=== PATIENT | male | born 1940 | race Caucasian/White ===

== ENCOUNTER 2017-12-23 18:46 | Inpatient (IN) | payer MEDICARE, OTHER ==
--- NOTE | 2017-12-23 19:16 | RAD ---
Indication: Chest pain. Coronary disease with previous myocardial infarction and stenting. Comparison: July 02, 2006 Technique: Upright AP 1900 hours Report: Cutaneous pacemaker pads noted. Clear lungs and pleural spaces. Negative for pneumothorax. The heart, pulmonary vasculature, and mediastinal contours are unremarkable. Unremarkable osseous structures and soft tissue contours. IMPRESSION: Negative for pulmonary edema or other acute radiographic cardiopulmonary process.
[2017-12-23 19:20] LABS: ABS Basophils 0.1 10^3/ul (0-0.2); ABS Eosinophils 0.2 10^3/ul (0-0.6); ABS Lymphocytes 1.6 10^3/ul (1.0-4.8); ABS Monocytes 1.5 10^3/ul (0-0.8); ABS Neutrophils 13.7 10^3/ul (1.5-7.7); ABS Nucleated RBC 0 10^3/ul; Eosinophil % 0.9 % (0-6); Hematocrit 45 % (42-52); Hemoglobin 15.2 g/dl (14.0-18.0); Lymphocyte % 9.4 % (25-47); Mean Corpuscular HGB Conc 34 g/dl (31-36); Mean Corpuscular Hemoglobin 34 pg (27-31); Mean Corpuscular Volume 101 fL (80-94); Mean Platelet Volume 8.7 um3 (7.4-10.4); Nucleated Red Blood Cells % 0; Platelet Count 294 10^3/ul (150-450); Red Blood Count 4.46 10^6/ul (4.0-5.4); Red Cell Distribution Width 14 % (10.5-15)
[2017-12-23 19:21] LABS: EGFR Non-African American 56.7 (>60)
--- NOTE | 2017-12-23 21:18 | ED ---
Zain Mercado Natalie, scribed for Rogelio Miller MD on 12/23/17 at 1945 . HPI Chest Pain - HPI Summary HPI Summary: The patient is a 77 y/o M presenting to the ED BIBA c/o chest pain starting at 15:00 today. The pain is described as a cramping in the midsternal region. Per EMS, the pt was administered 324mg ASA and NTG x2. After the second NTG was administered right before entering the ED, the pt became bradycardic with HR of 33BPM, and then became unresponsive. The pt responded to a strong sternal rub with provider and staff at bedside. 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 He is currently A&Ox3 once he was moved to the stretcher. He is currently on the zoll monitor. He reports relief of CP that is rated 2/10 in severity. He is diaphoretic, has a cough, and feels weak. He denies nausea. The pt states he remembers being in the ambulance, but he doesn't remember coming into the ED, but he remembers "feeling bad all over." He has had a WI before. - History of Current Complaint Chief Complaint: EDChestPainROMI Time Seen by Provider: 12/23/17 18:51 Hx Obtained From: Patient Onset/Duration: Started Hours Ago, Still Present Time of Onset: 15:00 Timing: Constant Initial Severity: Severe Current Severity: Mild Pain Intensity: 2 Pain Scale Used: 0-10 Numeric Chest Pain Location: Mid Sternal Chest Pain Radiates: No Character: Cough, Non-Productive Aggravating Factor(s): Nothing Alleviating Factor(s): NTG 123 - two NTG administered by EMS, Other: - 324mg ASA Associated Signs and Symptoms: Positive: Chest Pain, Weakness. Negative: Nausea - Allergy/Home Medications Allergies/Adverse Reactions: Allergies Allergy/AdvReac Type Severity Reaction Status Date / Time No Known Allergies Allergy Verified 12/23/17 18:53 Home Medications: Home Medications Aspirin EC TAB* [Ecotrin EC Low Dose 81 MG*] 81 mg PO DAILY 12/23/17 [History Confirmed 12/23/17] PMH/Surg Hx/FS Hx/Imm Hx Endocrine/Hematology History: Denies: Hx Diabetes Cardiovascular History: Reports: Hx Myocardial Infarction Infectious Disease History: No Infectious Disease History: Denies: Traveled Outside the [place] in Last 30 Days - Family History Known Family History: Positive: Cardiac Disease - Social History Alcohol Use: Occasionally Substance Use Type: Reports: None Smoking Status (MU): Former Smoker Review of Systems Positive: Skin Diaphoresis Positive: Chest Pain Positive: Cough Positive: Weakness All Other Systems Reviewed And Are Negative: Yes Physical Exam - Summary Physical Exam Summary: Appearance: The patient is well-nourished in no acute distress and in no acute pain. Skin: The skin is warm and diaphoretic and skin color reflects adequate perfusion. HEENT: The head is normocephalic and atraumatic. The pupils are equal and reactive. The conjunctivae are clear and without drainage. Nares are patent and without drainage. Mouth reveals moist mucous membranes and the throat is without erythema and exudate. The external ears are intact. The ear canals are patent and without drainage. The tympanic membranes are intact. Neck: The neck is supple with full range of motion and non-tender. There are no carotid bruits. There is no neck vein distension. Respiratory: Chest is non-tender. Lungs are clear to auscultation and breath sounds are symmetrical and equal. He has a paroxysmic cough. Cardiovascular: Normal heart ones. Heart is regular rate and rhythm. There is no murmur or rub auscultated. There is no peripheral edema and pulses are symmetrical and equal. Abdomen: The abdomen is soft and non-tender. There are normal bowel sounds heard in all four quadrants and there is no organomegaly palpated. Musculoskeletal: There is no back tenderness noted. Extremities are non-tender with full range of motion. There is good capillary refill. There is no peripheral edema or calf tenderness elicited. Neurological: Patient is alert and oriented to person, place and time. The patient has symmetrical motor strength in all four extremities. Cranial nerves are grossly intact. Deep tendon reflexes are symmetrical and equal in all four extremities. Psychiatric: The patient has an appropriate affect and does not exhibit any anxiety or depression. Triage Information Reviewed: Yes Vital Signs On Initial Exam: Initial Vitals Pulse Resp BP Pulse Ox 73 20 102/55 99 12/23/17 18:48 12/23/17 18:48 12/23/17 18:48 12/23/17 18:48 Vital Signs Reviewed: Yes Diagnostics - Vital Signs Vital Signs Temp Pulse Resp BP Pulse Ox 12/23/17 19:00 77 22 94 12/23/17 18:58 93 12/23/17 18:55 99.2 F 70 15 102/55 93 12/23/17 18:53 96 F 68 20 102/55 94 12/23/17 18:48 73 20 102/55 99 - Laboratory Lab Results: Lab Results 12/23/17 12/23/17 12/23/17 Range/Units 18:55 18:55 18:55 WBC 17.0 H (3.5-10.8) 10^3/ul RBC 4.46 (4.0-5.4) 10^6/ul Hgb 15.2 (14.0-18.0) g/dl Hct 45 (42-52) % MCV 101 H (80-94) fL MCH 34 H (27-31) pg MCHC 34 (31-36) g/dl RDW 14 (10.5-15) % Plt Count 294 (150-450) 10^3/ul MPV 8.7 (7.4-10.4) um3 Neut % (Auto) 80.7 (38-83) % Lymph % (Auto) 9.4 L (25-47) % [place] % (Auto) 8.7 H (0-7) % Eos % (Auto) 0.9 (0-6) % Baso % (Auto) 0.3 (0-2) % Absolute Neuts (auto) 13.7 H (1.5-7.7) 10^3/ul Absolute Lymphs (auto) 1.6 (1.0-4.8) 10^3/ul Absolute Monos (auto) 1.5 H (0-0.8) 10^3/ul Absolute Eos (auto) 0.2 (0-0.6) 10^3/ul Absolute Basos (auto) 0.1 (0-0.2) 10^3/ul Absolute Nucleated RBC 0 10^3/ul Nucleated RBC % 0 D-Dimer, Quantitative 224 (Less Than 230) ng/mL Lactic Acid 1.2 (0.5-2.0) mmol/L Result Diagrams: 12/23/17 18:55 12/23/17 18:55 Lab Statement: Any lab studies that have been ordered have been reviewed, and results considered in the medical decision making process. - Radiology CXR Xray Interpretation: No Acute Changes - Negative for pulmonary edema or other acute radiographic cardiopulmonary process. ED physician has reviewed this report. Radiology Interpretation Completed By: Radiologist - EKG 18:54 Cardiac Rate: NL EKG Rhythm: Sinus Rhythm - 66 BPM EKG Interpretation: RBBB. No ST elevation. Re-Evaluation - Re-Evaluation First Eval Re-Evaluation Time: 20:00 Change: Unchanged Comment: I spoke with the patient about being admitted to [facility]. Chest Pain Course/Dx - Course Course Of Treatment: suffered epigastric and chest pain from approximately 1500 hrs. on today. He apparently became bradycardic in the ambulance prior to arrival and then on transport into the emergency department became unresponsive. It is unclear what his vitals exactly were during that period, however his heart rate was 33. He regained consciousness as he was being transported onto our gurney in room 14 subsequent to a sternal rub. After a short period of disorientation, he became alert and oriented and reported that his chest pain was very much reduced and possibly gone. His initial EKG showed a right bundle branch block. An EKG faxed in prior to his arrival the EMS crew showed a right bundle branch block and occasional PVCs. His initial troponin was 0. I've asked the hospitalist to evaluate him for his very dramatic presentation of chest pain. - Diagnoses Provider Diagnoses: Chest pain - Provider Notifications Discussed Care Of Patient With: Dilia Rios Time Discussed With Above Provider: 19:55 - Dr. Rios accepts the patient for admittance to [facility]. - Critical Care Time Critical Care Time: 30-74 min Discharge - Sign-Out/Discharge Documenting (check all that apply): Discharge/Admit/Transfer - Discharge Plan Condition: Stable Disposition: ADMITTED TO [facility] Referrals: Dennise Mccarthy MD [Primary Care Provider] - - Billing Disposition and Condition Condition: STABLE Disposition: HOSP-[facility] The documentation as recorded by the Zain cruz Natalie accurately reflects the service I personally performed and the decisions made by me, Rogelio Miller MD.
[2017-12-23] MEDS ORDERED: Acetaminophen TAB* 325 MG PO PRN (22:24)
[2017-12-23] MEDS ORDERED: Al Hydrox/Mg Hydrox/Simet LIQ* 30 ML UDC PO PRN (22:24)
[2017-12-23] MEDS ORDERED: Ondansetron INJ* 2 MG/ML VIAL IV PRN (22:24)
[2017-12-24] MEDS: NS 0.9% 1000 ML* 1,000 ML IV SCH ×2 (00:30→18:10)
[2017-12-24 00:32] LABS: Urine Appearance Cloudy; Urine Blood Negative (Negative); Urine Color Yellow; Urine Ketones Trace (Negative); Urine Protein Negative (Negative); Urine Specific Gravity 1.025 (1.010-1.030); Urine Urobilinogen Negative (Negative)
--- NOTE | 2017-12-24 00:32 | HP ---
CC: Dr. Dennise Mccarthy * HISTORY AND PHYSICAL: DATE OF ADMISSION: 12/23/17 PROVIDER: Dilia Rios NP PRIMARY CARE PROVIDER: Dr. Dennise Mccarthy. ATTENDING PHYSICIAN WHILE IN THE HOSPITAL: Dr. Gary Rausch* (dictated by Dilia Rios NP) CHIEF COMPLAINT: 1. Chest pain. 2. Nausea and vomiting. HISTORY OF PRESENT ILLNESS: Mr. 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 this evening developed chest pain with chills. The patient states that he felt well this morning. He was working outside. He had no chest pain. He had gone and was photographing some kincaid and had no chest pain at all. He was feeling his normal state of health and that between 2:30 and 3 p.m. today, he developed some stomach upset, felt like he needed to have a BM and then he felt nausea. He went to the bathroom several times and then did vomited x1. After he vomited, he became chilled. He states then about 4 p.m., he developed some chest pain and some chills. He was belching. He reports that these symptoms were similar to 12 years ago when he had his [place]. Due to this concern and his history of coronary artery disease with stent placement x2 in his LAD and circumflex 12 years ago, we were asked to see and evaluate him for admission. While in the emergency room, the patient had a routine lab work drawn. His initial troponin was negative. It was noted that when the patient was being transferred from EMS stretcher to the hospital stretcher, he did have a syncopal episode. The patient states that he felt dizzy after receiving his second nitro sublingual and then does not remember what happened after that. The patient recently returned from the [facility] approximately 3 to 4 weeks at which time that was a 30-hour flight home. PAST MEDICAL HISTORY: Significant for: 1. Hypertension. 2. Hyperlipidemia. 3. [place]. 4. Lyme disease. 5. Guillain-Ruskin. PAST SURGICAL HISTORY: 1. Stents in his LAD and circumflex 12 years ago. 2. Appendectomy. 3. Tonsillectomy. HOME MEDICATIONS: Include: 1. Metoprolol 50 mg p.o. daily. 2. Aspirin 81 mg p.o. daily. 3. Vitamin B12. 4. Lopid 600 mg p.o. daily. ALLERGIES: No known drug allergies. FAMILY HISTORY: Father with a history of an [place]. No diabetes was reported. No cancer reported. SOCIAL HISTORY: He denies having tobacco use. Alcohol use: He does report daily consumption of approximately 1 to 2 glasses of wine. Denies any illicit drug use. He is . Surrogate decision maker in the event he is unable to make his own decision is his , Genevieve Holman and her phone number is [phone]. He is a full code. REVIEW OF SYSTEMS: There was no documented fever. There is no significant weight change. He does report some chest pain that has resolved since his presentation to the emergency room. No edema. He does report a chronic cough with clear sputum. Denies any hemoptysis. Denies any shortness of breath. He does report some nausea and vomiting today. He does report 1 episode of diarrhea. He also reported some abdominal pain. He denies any hematuria, denies any dysuria. Denies any focal weakness or sensory loss. Denies any visual changes. Denies any dizziness. Denies any dysphagia. Denies any arthralgias or myalgias. Denies any rashes or lesions. Denies any psychosis or anxiety. PHYSICAL EXAMINATION GENERAL: At this time, Ms. Holman is a 77-year-old gentleman. He appears well , sitting on the stretcher in the emergency room. He does not appear to be in any acute distress. VITAL SIGNS: Blood pressure is 109/63, heart rate is 64, sinus rhythm on the monitor, respirations are 20, O2 saturation was 95%. HEENT: Head is atraumatic, normocephalic. Eyes: EOMs are intact. Sclerae anicteric and not pale. Oral mucosa appeared to be moist. NECK: Supple. LUNGS: Clear to auscultation bilaterally. No wheezes, rales, or rhonchi. CARDIAC: S1, S2. Regular rate and rhythm. There are no murmurs, rubs, or gallops. ABDOMEN: Soft and nontender. Bowel sounds are present x4. EXTREMITIES: Pulses are +2 throughout. He is able to move all 4 extremities with 5/5 strength. NEUROLOGIC: He is alert and oriented x4. His speech is clear. There are no focal deficits. SKIN: Intact. DIAGNOSTIC STUDIES AND LABORATORY DATA: WBCs were 17.0, RBCs 4.46, hemoglobin was 15.2, hematocrit was 45, MCV 101, MCH was 34, platelet count was 294. D- dimer was 224. Sodium 140, potassium 3.8, chloride was 107, carbon dioxide was 24, anion gap was 9, BUN was 23, creatinine 1.24, glucose was 125. Lactic acid was 1.2. Troponin was 0.00 and 0.03. He had a chest x-ray. Radiologist's impression: Negative for pulmonary edema or other radiographic cardiopulmonary processes. He had an electrocardiogram done, which showed sinus rhythm at a rate of 70 with a right bundle branch block. ASSESSMENT AND PLAN: Mr. Holman is a 77-year-old male who presented to the emergency room today with complaints of abdominal pain that progressed to chest pain. He did receive 2 nitro by EMS and subsequently had a syncopal episode when being transferred from the stretcher to the emergency room stretcher. He was able to be aroused with sternal rub. The patient currently denies any chest pain. Denies any shortness of breath at this time. We were asked to see and evaluate him for admission. He will be admitted under observation for: 1. Chest pain. We will rule out acute coronary syndrome. His NORAH score is 3 , which gives him a 13% risk at 14 days all cause mortality, new or recurrent myocardial infarction or severe recurrent ischemia requiring urgent revascularization. He did have a D-dimmer drawn that was negative. Given his history, he recently returned from [facility] which was approximately 30-hour flight. Should he develop any further symptoms of shortness of breath or different changes in chest pain, we may need to consider doing a CTA of the chest for further evaluation of pulmonary embolism. I will continue to trend his troponins. Currently, they are negative at 0.00 and 0.03. We will repeat an EKG in the morning. The patient does carry a history of coronary artery disease with 2 stents placements in the LAD and the circumflex approximately 12 years ago. I will order nuclear stress. 2. Hypertension. We will continue him on metoprolol. 3. Hyperlipidemia. He will continue his Lopid 600 mg p.o. daily. 7. DVT prophylaxis. I will place him on heparin subcu 5000 units q.8 hours. 8. FEN. He will be placed on a heart healthy, decaf okay diet after his stress test. 9. Code status. He is a full code. TIME SPENT: Time spent on this admission was approximately 60 minutes, greater than half of that time was spent [id number] with the patient obtaining my history and physical, the other half of the time was spent going over my plan of care and implementing my plan of care. I did discuss this with my attending, Dr. Gary Rausch, and he is in agreement with my plan. DILIA RIOS, JEANNE [id number]/[facility] #: [id number] MTDBrenda
--- NOTE | 2017-12-24 02:07 | PN ---
Hospitalist Progress Note Date of Service: 12/24/17 Called by RN due to mildly elevated troponin on pt admitted for CP. Pt likely have ACS, but pt currently sleeping, comfortable, with stable VS per RN. Will D /C DVT prophylaxis with SQ Heparin and will place pt on 1mg/kg SQ Lovenox q12H until pt re-evaluated in AM by team. EKG re-ordered
[2017-12-24] MEDS: Enoxaparin(*) 80 MG/0.8 ML SYR SUBCUT SCH ×2 (02:11→17:40)
[2017-12-24 06:00] LABS: ABS Basophils 0 10^3/ul (0-0.2); ABS Eosinophils 0.1 10^3/ul (0-0.6); ABS Lymphocytes 1.9 10^3/ul (1.0-4.8); ABS Monocytes 1.2 10^3/ul (0-0.8); ABS Neutrophils 6.3 10^3/ul (1.5-7.7); ABS Nucleated RBC 0 10^3/ul; Eosinophil % 0.9 % (0-6); Hematocrit 40 % (42-52); Hemoglobin 13.8 g/dl (14.0-18.0); Lymphocyte % 20.3 % (25-47); Mean Corpuscular HGB Conc 35 g/dl (31-36); Mean Corpuscular Hemoglobin 35 pg (27-31); Mean Corpuscular Volume 100 fL (80-94); Mean Platelet Volume 8.8 um3 (7.4-10.4); Nucleated Red Blood Cells % 0.1; Platelet Count 245 10^3/ul (150-450); Red Blood Count 4.01 10^6/ul (4.0-5.4); Red Cell Distribution Width 14 % (10.5-15); White Blood Count 9.5 10^3/ul (3.5-10.8)
[2017-12-24] MEDS ORDERED: Heparin VIAL(*) 5000 UNITS/ML VIAL (FIVE THOUSAND) SUBCUT SCH (06:00)
[2017-12-24 06:20] LABS: EGFR Non-African American 63.7 (>60)
[2017-12-24] MEDS: Gemfibrozil TAB* 600 MG PO SCH (08:28)
[2017-12-24] MEDS: Aspirin EC TAB* 81 MG TAB.EC PO SCH (08:28)
[2017-12-24] MEDS ORDERED: Diazepam TAB(*) 5 MG PO ONE (09:09)
[2017-12-24] MEDS ORDERED: Aspirin 81 mg CHEW TAB* 81 MG TAB.CHEW PO ONE (09:09)
[2017-12-24] MEDS ORDERED: diPHENhydraMINE PO* 25 MG PO ONE (09:09)
[2017-12-24] MEDS: Metoprolol Succinate XL TAB* 50 MG PO SCH (09:28)
--- NOTE | 2017-12-24 11:17 | ECHO ---
Patient: CARLINE BARR [facility] Rec#: [id number] : 1940 Date: 12/24/2017 Age: 77y Height: 170.18 cm / 67.0 in Weight: 72.12 kg / 159.0 lbs Sex: M BSA: 1.83 Admit Date#: 12/24/2017 Type: Inpatient Referring: Josselin Angulo MD Reading: Dar Barrientos MD Planer Feeder: Abeba PalmaKELVIN CC: Dennise Mccarthy MD Transthoracic Echocardiogram Indication: Chest Pain, elevated troponin levels BP: 118/60 HR: 53 Rhythm: Bradycardia Findings History: HTN, HLD, IA with PCI 12 years ago, Lyme disease 2017. Technical Comments: The study quality is fair. Completed at 1000. Left Ventricle: The left ventricular chamber size is normal. Mild concentric left ventricular hypertrophy is observed. Left ventricular systolic function is at the lower limits of normal. The estimated ejection fraction is 50-55%. There is a left ventricular septal wall motion abnormality observed, possibly due to the presence of a right bundle branch block. Abnormal left ventricular diastolic function is observed. There is an E to A reversal in the mitral valve flow pattern suggestive of diastolic dysfunction. Left Atrium: The left atrial chamber size is normal. Right Ventricle: Moderator Band present. The right ventricular cavity size is normal. The right ventricular global systolic function is normal. Right Atrium: The right atrial cavity size is normal. Aortic Valve: The aortic valve is trileaflet. There is evidence of aortic sclerosis without stenosis. There is trace to mild aortic regurgitation. There is no evidence of aortic stenosis. Mitral Valve: The mitral valve leaflets are mildly thickened. There is trace to mild mitral regurgitation. There is no evidence of mitral stenosis. Tricuspid Valve: The tricuspid valve leaflets are normal. There is trace to mild tricuspid regurgitation. The right ventricular systolic pressure is estimated at 26 mmHg. No pulmonary hypertension is noted. There is no tricuspid stenosis. Pulmonic Valve: The pulmonic valve appears normal. There is a trace pulmonic regurgitation. There is no pulmonic stenosis. Pericardium: There is no significant pericardial effusion. Aorta: There is mild dilatation of the ascending aorta. There is no dilatation of the aortic arch. There is mild dilatation of the aortic root. Pulmonary Artery: The main pulmonary artery appears normal. Venous: The inferior vena cava appears normal in size. There is a greater than 50% respiratory change in the inferior vena cava dimension. Conclusions Left ventricular systolic function is at the lower limits of normal. The estimated ejection fraction is 50-55%. There is a left ventricular septal wall motion abnormality observed, possibly due to the presence of a right bundle branch block. The right ventricular global systolic function is normal. There is evidence of aortic sclerosis without stenosis. There is trace to mild mitral regurgitation. There is trace to mild tricuspid regurgitation. The right ventricular systolic pressure is estimated at 26 mmHg. There is no significant pericardial effusion. Measurements Name Value Normal Range RVIDd (AP) 2D 3 cm (0.9 - 2.6) RVDdMajor (2D) 3.6 cm (2.2 - 4.4) RAd ISD 4CH 4.7 cm (3.4 - 4.9) RA (A4C)W 4 cm (2.9 - 4.6) IVSd (2D) 1.3 cm (0.6 - 1) LVPWd (2D) 1.2 cm (0.6 - 1) LVIDd (2D) 4.3 cm (3.6 - 5.4) LVIDs (2D) 3.6 cm - LV FS (2D) 17 % (25 - 45) Aortic Annulus 2 cm (1.4 - 2.6) Ao root diameter (2D) 3.7 cm (2.1 - 3.5) Ascending Ao 3.7 cm (2.1 - 3.4) Aortic arch 2.7 cm (1.8 - 3.4) LA dimension (AP) 2D 3.4 cm (2.3 - 3.8) LAd ISD 4CH 5.1 cm (2.9 - 5.3) LA ISD 4CH W 4.2 cm (2.5 - 4.5) Name Value Normal Range LA ESV SP 4CH (A/L) 39 ml - LA ESV SP 2CH (A/L) 43 ml - LA ESV BP (A/L) 45 ml - LA ESV BP (A/L) index 24 ml/m2 - LA ESV SP 4CH (MOD) 35 ml - LA ESV SP 2CH (MOD) 39 ml - Name Value Normal Range MV E-wave Vmax 0.61 m/sec - MV deceleration time 245.3 msec - MV A-wave Vmax 0.75 m/sec - MV E:A ratio 0.8 ratio - LV septal e' Vmax 0.07 m/sec - LV lateral e' Vmax 0.08 m/sec - LV E:e' septal ratio 8.71 ratio - LV E:e' lateral ratio 7.63 ratio - Name Value Normal Range AV Vmax 1.2 m/sec - AV VTI 31.11 cm - AV peak gradient 5.64 mmHg - AV mean gradient 2.87 mmHg - LVOT Vmax 1.1 m/sec - LVOT VTI 26.07 cm - LVOT peak gradient 5.12 mmHg - LVOT mean gradient 2.74 mmHg - UMBERTO Vmax 0.71 m/sec - Name Value Normal Range TR Vmax 2.4 m/sec - TR peak gradient 23 mmHg - RAP 3 mmHg - RVSP 26 mmHg - IVC diameter 2 cm - Name Value Normal Range PV Vmax 0.84 m/sec - PV peak gradient 2.85 mmHg -
--- NOTE | 2017-12-24 12:00 | PN ---
Subjective Date of Service: 12/24/17 Interval History: no more CP since admission, but troponins continue to raise. Pt feels comfortable, no complaints Objective Active Medications: Acetaminophen (Tylenol Tab*) 650 mg PO Q4H PRN PRN Reason: FEVER/PAIN Al Hydrox/Mg Hydrox/Simethicone (Maalox Plus*) 30 ml PO Q6H PRN PRN Reason: INDIGESTION Aspirin (Aspirin Ec Tab*) 81 mg PO DAILY [facility] Last Admin: 12/24/17 08:28 Dose: 81 mg Enoxaparin Sodium (Lovenox(*)) 70 mg SUBCUT Q12H [facility] Last Admin: 12/24/17 02:11 Dose: 70 mg Gemfibrozil (Lopid Tab*) 600 mg PO DAILY [facility] Last Admin: 12/24/17 08:28 Dose: 600 mg Sodium Chloride (Ns 0.9% 1000 Ml*) 1,000 mls @ 75 mls/hr IV PER RATE [facility] Last Admin: 12/24/17 00:30 Dose: 75 mls/hr Metoprolol Succinate (Toprol Xl Tab*) 50 mg PO DAILY [facility] Last Admin: 12/24/17 09:28 Dose: Not Given Ondansetron HCl (Zofran Inj*) 4 mg IV Q4H PRN PRN Reason: NAUSEA/VOMITING Vital Signs - 8 hr 12/24/17 12/24/17 12/24/17 04:38 07:22 07:44 Temperature 98.1 F Pulse Rate 60 62 Respiratory 16 Rate Blood Pressure 104/59 118/60 (mmHg) O2 Sat by Pulse 97 Oximetry Oxygen Devices in Use Now: None Appearance: 77 yo M in nAD, aAOx3 Eyes: No Scleral Icterus, PERRLA Ears/Nose/Mouth/Throat: NL Teeth, Lips, Gums, Mucous Membranes Moist Neck: NL Appearance and Movements; NL JVP, Trachea Midline Respiratory: Symmetrical Chest Expansion and Respiratory Effort, Clear to Auscultation Cardiovascular: NL Sounds; No Murmurs; No JVD Abdominal: NL Sounds; No Tenderness; No Distention, No Hepatosplenomegaly Lymphatic: No Cervical Adenopathy Extremities: No Edema, No Clubbing, Cyanosis Skin: No Rash or Ulcers, No Nodules or Sclerosis Neurological: Alert and Oriented x 3, NL Muscle Strength and Tone Result Diagrams: 12/24/17 05:29 12/24/17 05:29 Additional Lab and Data: Lab Results 12/23/17 12/23/17 12/23/17 Range/Units 18:55 18:55 18:55 WBC 17.0 H (3.5-10.8) 10^3/ul RBC 4.46 (4.0-5.4) 10^6/ul Hgb 15.2 (14.0-18.0) g/dl Hct 45 (42-52) % MCV 101 H (80-94) fL MCH 34 H (27-31) pg MCHC 34 (31-36) g/dl RDW 14 (10.5-15) % Plt Count 294 (150-450) 10^3/ul MPV 8.7 (7.4-10.4) um3 Neut % (Auto) 80.7 (38-83) % Lymph % (Auto) 9.4 L (25-47) % [place] % (Auto) 8.7 H (0-7) % Eos % (Auto) 0.9 (0-6) % Baso % (Auto) 0.3 (0-2) % Absolute Neuts (auto) 13.7 H (1.5-7.7) 10^3/ul Absolute Lymphs (auto) 1.6 (1.0-4.8) 10^3/ul Absolute Monos (auto) 1.5 H (0-0.8) 10^3/ul Absolute Eos (auto) 0.2 (0-0.6) 10^3/ul Absolute Basos (auto) 0.1 (0-0.2) 10^3/ul Absolute Nucleated RBC 0 10^3/ul Nucleated RBC % 0 D-Dimer, Quantitative 224 (Less Than 230) ng/mL Lactic Acid 1.2 (0.5-2.0) mmol/L Assess/Plan/Problems-Billing Assessment: 77 yo M with h/o CAD(2 stents in past) presents with CP - Patient Problems (1) Unstable angina Comment: for cath today cont lovenox, ASA, lopressor Dr. Barrientos will see (2) Dyslipidemia Comment: on lopid, LDL 128, will d/w pt statin tx (3) DVT prophylaxis Comment: lovenox Status and Disposition: inpatient
[2017-12-24] MEDS ORDERED: fentaNYL* 50 MCG/ML 2 ML VIAL (100 MCG VIAL) ONE (13:24)
[2017-12-24] MEDS ORDERED: Heparin(*) 1000 UNIT/ML 10 ML VIAL CATH LAB IV ONE (13:25)
[2017-12-24] MEDS ORDERED: nitroGLYCERIN DRIP* 25,000 MCG/250 ML BTL ONE (13:25)
[2017-12-24] MEDS ORDERED: Heparin 2 UNITS/ML IVPREMIX* 2,000 ML IV ONE (13:25)
[2017-12-24] MEDS ORDERED: Lidocaine 1% INJ* 10 MG/ML 30 ML SDV ONE (13:25)
[2017-12-24] MEDS ORDERED: Iohexol 350 (CONTRAST) 200 ML MDV IV ONE ×2 (13:26→13:27)
[2017-12-24] MEDS ORDERED: VERAPAMIL 2.5 MG/ML 2 ML VIAL ** 5 mg/2 ml ONE (13:27)
[2017-12-24] MEDS ORDERED: Midazolam* 1 MG/ML 10 ML VIAL (10 MG) ONE (13:47)
[2017-12-24] MEDS ORDERED: Nitroglycerin TAB 0.4 MG* 0.4 MG TAB SL PRN (14:46)
[2017-12-24] MEDS ORDERED: Clopidogrel TAB* 300 MG PO ONE (14:47)
--- NOTE | 2017-12-24 14:52 | CONS ---
CC: Dr. Mccarthy * CARDIOLOGY CONSULTATION: DATE OF CONSULT: 12/24/17 INDICATION FOR CONSULTATION: Chest pain, acute coronary syndrome, coronary artery disease. HISTORY OF PRESENT ILLNESS: The patient is a 77-year-old gentleman with a history of coronary artery disease, history of stenting to his LAD and left circumflex artery in 2005. He was admitted to the hospital with chest pain. The patient states that he was out working in his yard most of the afternoon. He suddenly felt severe abdominal pain as though he would urgently have a bowel movement. He went into the house, had his bowel movement, still did not feel quite comfortable, was lying on his couch, had to have a second bowel movement and then later on started having chest pain. It was the center of his chest, it did radiate up into his shoulder. He did not have any diaphoresis. He did feel slightly nauseous with it. He told his who decided to bring him to the emergency room. On arrival, his EKG showed normal sinus rhythm with a right bundle-branch block. This is unchanged from previous EKGs. He had no clear evidence of ST segment elevation. His initial troponin level was 0. Subsequently, his troponin levels went up to 0.24 and then at a peak of 1.43. This morning, the patient is pain free. PAST MEDICAL HISTORY: Consistent with coronary artery disease, hypercholesterolemia, bradycardia. PAST SURGICAL HISTORY: None. OUTPATIENT MEDICATIONS: 1. Metoprolol ER 25 mg a day. 2. Gemfibrozil 600 mg b.i.d. 2. Aspirin 81 mg a day. ALLERGIES: He has been intolerant of multiple STATINS in the past. SOCIAL HISTORY: He is . He is currently retired. He is a previous smoker, he quit 40 years ago. He does get regular exercise. He has occasional alcohol. He drinks 2 cups of coffee a day. REVIEW OF SYSTEMS: Negative for fevers or chills. Negative for changes of bowel or bladder habits. Negative for changes in weight. PHYSICAL EXAMINATION: Height is 5 feet 7 inches, weight is 160 pounds. Temperature 98.1, heart rate is 62, blood pressure 118/60, respiratory rate is 16, oxygen saturation 97% on room air. Sclerae anicteric. Oropharynx is pink without erythema. Carotids are 2+ without bruits. JVD is normal. Thyroid is normal. Cardiac Exam: S1, S2 without any murmurs, rubs or gallops. Lungs are clear to auscultation bilaterally. There is no dullness to percussion. Abdomen is soft, nontender, nondistended with normoactive bowel sounds. Extremities show no edema. He has 2+ pulses throughout. The patient is awake, alert, and oriented. He moves all 4 extremities equally. DIAGNOSTIC STUDIES/LAB DATA: The patient had an echocardiogram today, which demonstrated normal LV size and systolic function. No local wall motion abnormalities. No valvular abnormalities. The patient had a stress echocardiogram in 2011, at which time he exercised for 10 minutes. He had no chest pain, no EKG changes and normal augmentation of his left ventricle. Laboratory Studies: Chemistries within normal limits. BUN 23, creatinine 1.1, AST and ALT are normal, total cholesterol 195. LDL 128, HDL of 51. Troponin levels are as described above. CBC within normal limits. IMPRESSION: This is a 77-year-old gentleman with a history of known coronary artery disease who was admitted to the hospital with unstable angina. He clearly had rest angina at home. His initial troponin level was normal, but has since risen to 1.4. Currently, the patient is pain free. It is my recommendation the patient undergo cardiac catheterization. At this point, I do not think any medication changes are necessary until results of the cardiac catheterization. [id number]/[facility] #: [id number] MTDD
[2017-12-25] MEDS: Enoxaparin(*) 80 MG/0.8 ML SYR SUBCUT SCH (03:18)
[2017-12-25 06:10] LABS: ABS Basophils 0 10^3/ul (0-0.2); ABS Eosinophils 0.3 10^3/ul (0-0.6); ABS Lymphocytes 2.4 10^3/ul (1.0-4.8); ABS Monocytes 0.8 10^3/ul (0-0.8); ABS Neutrophils 3.4 10^3/ul (1.5-7.7); ABS Nucleated RBC 0 10^3/ul; Eosinophil % 4.1 % (0-6); Hematocrit 41 % (42-52); Lymphocyte % 34.3 % (25-47); Mean Corpuscular HGB Conc 35 g/dl (31-36); Mean Corpuscular Hemoglobin 34 pg (27-31); Mean Corpuscular Volume 100 fL (80-94); Mean Platelet Volume 8.4 um3 (7.4-10.4); Nucleated Red Blood Cells % 0.2; Platelet Count 251 10^3/ul (150-450); Red Blood Count 4.07 10^6/ul (4.0-5.4); Red Cell Distribution Width 13 % (10.5-15); White Blood Count 6.9 10^3/ul (3.5-10.8)
[2017-12-25 06:23] LABS: EGFR Non-African American 67.9 (>60)
[2017-12-25 08:38] VITALS: BP 132/72
[2017-12-25] MEDS: Metoprolol Succinate XL TAB* 50 MG PO SCH (08:39)
[2017-12-25] MEDS: Gemfibrozil TAB* 600 MG PO SCH (08:39)
[2017-12-25] MEDS: Aspirin EC TAB* 81 MG TAB.EC PO SCH (08:39)
[2017-12-25] MEDS ORDERED: Clopidogrel TAB* 75 MG PO SCH (09:00)
--- NOTE | 2017-12-25 14:04 | CATH ---
CC: Dr. Mccarthy; Dr. Wallace * CARDIAC CATHETERIZATION NOTE: DATE OF PROCEDURE: 12/24/17 - ROOM #[id number] PROCEDURE: Cardiac catheterization including coronary angiography. INDICATION: Coronary artery disease, acute coronary syndrome, chest pain. The patient is a 77-year-old gentleman with a history of coronary artery disease , history of stents to his LAD and left circumflex artery in 2005, who came to the hospital because of chest pain. His initial EKG showed no ischemic EKG changes. His troponin peaked at 1.4. Cardiac catheterization was recommended. DESCRIPTION OF PROCEDURE: The patient was brought to the cardiac catheterization lab in a fasting state. Informed consent had been obtained prior to the procedure. All labs had been reviewed. The patient was placed supine on the procedure table. His right radial area was cleaned and draped in the usual fashion. 1% lidocaine was used for local anesthesia. The right radial artery was entered by a Seldinger technique and a guidewire was placed. A 6-Turkmen hydrophilic sheath was placed. The patient underwent coronary angiography using a 5-Turkmen TIG catheter and a 5- Turkmen FL4 catheter. At the end of the procedure, all sheaths and catheters were removed. The patient tolerated the procedure well with no complications. A total of 30 cc of Omnipaque dye was used. A total of 4.1 minutes of fluoro time was used. FINDINGS: Left main: The left main was normal in size. It bifurcated into the LAD and circumflex. There was no evidence of stenosis. Left anterior descending artery: The LAD was normal in size. A proximal stent was open and patent. There was mild disease at the mid LAD. The distal LAD had no disease. Two diagonal vessels had no disease. Left circumflex artery: The circumflex artery was normal in size. It gave off 3 obtuse marginal branches. The left circumflex itself had no disease. The stent to the mid left circumflex was open and patent. The OM2 vessel had a proximal eccentric 50% stenosis. The remainder of the vessels were without disease. Right coronary artery: The RCA was a large dominant vessel. It gave off the PDA. There was mild disease in the proximal right coronary artery. The remainder of the vessel was without disease. IMPRESSION: 1. Stents to the LAD and left circumflex artery are open and patent. 2. 50% stenosis to the OM2 vessel off left circumflex artery. 3. Mild disease to the proximal right and mid LAD vessels. RECOMMENDATIONS: The patient will be continued on maximum medical therapy. [id number]/[facility] #: [id number] MTDD
[2017-12-25] MEDS ORDERED: Atorvastatin* 40 MG TAB PO SCH (17:00)
[2017-12-25] MEDS ORDERED: Atorvastatin* 80 MG TAB PO SCH (17:00)
--- NOTE | 2017-12-25 22:18 | DS ---
CC: Dennise Mccarthy MD; Dr. Barrientos * DISCHARGE SUMMARY: DATE OF ADMISSION: 12/23/17 DATE OF DISCHARGE: 12/25/17 PRIMARY CARE PROVIDER: Dennise Mccarthy MD DISCHARGE DIAGNOSIS: [id number] myocardial infarction. SECONDARY DIAGNOSES: 1. History of hypertension. 2. Dyslipidemia. 3. History of myocardial infarction. 4. History of Lyme disease. 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 MEDICATIONS AT DISCHARGE: Include: 1. Metoprolol-XL 50 mg daily. 2. Aspirin 81 mg daily. 3. Vitamin B12 daily dietary supplement. 4. Lopid 600 mg daily. New medication: 1. Plavix 75 mg daily. LABORATORY DATA AND STUDIES PERFORMED DURING THE HOSPITAL STAY: Include: On , white blood cell count of 6.9, hemoglobin of 14.0, hematocrit of 41, MCV of 100, platelet of 251. Sodium was 139, potassium 3.9, chloride 108, carbon dioxide 23, BUN 21, creatinine 1.02. Liver function tests were unremarkable at admission. The patient's troponin peaked at 1.59 on 12/24/17. The patient's lipid profile showed triglycerides of 78, cholesterol total of 195 , LDL of 128, HDL of 51 that was obtained on 12/24/17. CONSULTATIONS DURING THE HOSPITAL STAY: Included Dr. Barrientos from Cardiology. PROCEDURES PERFORMED: Include cardiac catheterization performed by Dr. Barrientos on 12/24/17. The official dictated report is still pending at the time of this dictation. From the written abbreviated report, the patient had both stents at the LAD opened. The S1 branch of LAD with 99% stenosis, but it was significantly small caliber vessel not amenable for intervention, OM2 branch with 60% stenosis. Transthoracic echocardiogram obtained on 12/24/17 showed EF of 50% to 55%. There was left ventricular septal wall motion abnormality observed due to the presence of right bundle-branch block. The systolic function was at the lower limits of normal. There was evidence of aortic sclerosis, but without stenosis. There was trace to mild mitral regurgitation and trace to mild tricuspid regurgitation and right ventricular pressure estimated at 26 mmHg. HOSPITALIZATION COURSE: Sukhi Holman is a 77-year-old male with a history of coronary artery disease, who presented to the hospital complaining of chest pain and vomiting. The patient initially had negative workup, but his troponin continued to climb throughout his hospital stay to the maximum of 1.59. Throughout his hospital stay, the patient was also no further symptomatic. He was placed on anticoagulation and Dr. Barrientos from Cardiology saw the patient in consultation. Dr. Barrientos recommended cardiac catheterization, which was performed on 12/24/17. It showed that patient has a septal branch of LAD that was at critical stenosis, but the vessel was too small for intervention. The patient was treated medically with addition of Plavix. He continued to do well and was asymptomatic with ambulation by the day of discharge. He is going to be discharged home with recommendation to follow up with his primary care provider in 4 to 7 days and his pulling machine operator, Dr. Barrientos, in approximately 1 month. Please note that the patient's LDL was 128, but I discussed the case with Dr. Barrientos who tried to place patient on multiple statins and the patient was, unfortunately, not tolerating it. At this point, gemfibrozil treatment will not be changed and the patient was also advised to continue cardiac diet. PHYSICAL EXAM AT THE TIME OF DISCHARGE: Blood pressure of 132/72, heart rate of 58 and regular, respiratory rate 18, oxygen saturation 98% on room air, temperature 97.1. General: The patient is a very pleasant, 77-year-old male, who is in no acute distress. Alert, awake and oriented x3. HEENT: Head atraumatic, normocephalic. Eyes: Pupils equal, reactive to light and accommodation. Oropharynx clear. Mucosa moist. Neck: Supple. No JVD. No bruits bilaterally. Cardiovascular: Regular rate and rhythm. No murmur. Respiratory: Clear to auscultation bilaterally. Abdomen: Soft, nontender. Bowel sounds are present in all 4 quadrants. Extremities: There is no edema. Pulses +2 bilaterally. There is no clubbing or cyanosis. The patient had right radial approach and he had good right radial pulse at the time of discharge with no evidence of hematoma in the area of post-cath. Please note that this is a short summary of the patient's hospitalization. Please refer to further medical records for details. [id number]/[facility] #: [id number] MTDD
== END 2017-12-25 11:40 | disposition home or self-care (01) | DRG 282 ==
LOC: ED 18:46 → MEDTELE 22:24 → OBSVTOIN 12-24 17:37
PROVIDERS: ADMIT Student in an Organized Health Care Education/Training Program; ATTEND Internal Medicine
PROC: B2111ZZ Fluoroscopy of Multiple Coronary Arteries using Low Osmolar Contrast (ICD-10-PCS; principal; 2017-12-24 13:45)
DX: I21.4 Non-ST elevation (NSTEMI) myocardial infarction (principal); I10 Essential (primary) hypertension; E78.5 Hyperlipidemia, unspecified; I45.10 Unspecified right bundle-branch block; R55 Syncope and collapse; I08.3 Combined rheumatic disorders of mitral, aortic and tricuspid valves; R00.1 Bradycardia, unspecified; I25.110 Atherosclerotic heart disease of native coronary artery with unstable angina pectoris; Z82.49 Family history of ischemic heart disease and other diseases of the circulatory system; Z95.5 Presence of coronary angioplasty implant and graft; Z90.49 Acquired absence of other specified parts of digestive tract; Z72.89 Other problems related to lifestyle; Z87.891 Personal history of nicotine dependence; I25.2 Old myocardial infarction; Z88.8 Allergy status to other drugs, medicaments and biological substances
CPT/HCPCS: 36415; 71045; 80048; 80053; 80061; 81003; 83605; 84484; 85025; 85379; 93005; 93306; 93454; 99156; 99157; 99284; A9270-GY; J1644; J1650; J2250; J3010

== ENCOUNTER 2021-10-20 11:10 | Inpatient (IN) ==
[2021-10-20] MEDS ORDERED: Morphine 4 MG/ML VIAL (1 ml) ONE (11:11)
[2021-10-20] MEDS ORDERED: VERAPAMIL 2.5 MG/ML 2 ML VIAL ** 5 mg/2 ml ONE (11:13)
[2021-10-20] MEDS ORDERED: Heparin 1,000 UNIT/ML 10 ml (10,000 UNITS) CATHLAB/DIALYSIS ONE (11:13)
[2021-10-20] MEDS ORDERED: Heparin 2 UNITS/ML 1000 mls 2,000 ML IV ONE (11:13)
[2021-10-20] MEDS ORDERED: Iohexol 350 (CONTRAST) 200 ML MDV IV ONE (11:13)
[2021-10-20] MEDS ORDERED: nitroGLYCERIN DRIP 25,000 MCG/250 ML BTL ONE (11:13)
[2021-10-20] MEDS ORDERED: Lidocaine 1% MPF 5 ML VIAL ONE (11:15)
[2021-10-20] MEDS ORDERED: Heparin - STEMI 5,000 UNITS/ML 1 ml VIAL IV ONE ×2 (11:17→11:18)
[2021-10-20] MEDS ORDERED: fentaNYL 100 mcg/2 ml 50 MCG/ML VIAL ONE (11:20)
[2021-10-20] MEDS ORDERED: Midazolam 5 mg/5 ml VIAL 1 mg/ml 5 ml VIAL (5 mg) ONE (11:20)
[2021-10-20] MEDS ORDERED: Morphine 4 MG/ML VIAL (1 ml) IV ONE (11:22)
[2021-10-20 11:25] LABS: ABS Eosinophils 0.1 10^3/ul (0-0.6); ABS Lymphocytes 1.9 10^3/ul (1.0-4.8); ABS Monocytes 0.8 10^3/ul (0-0.8); ABS Neutrophils 7.7 10^3/ul (1.5-7.7); Eosinophil % 1.3 %; Hematocrit 42 % (42-52); Hemoglobin 15.1 g/dL (14.0-18.0); Lymphocyte % 17.5 %; Mean Corpuscular HGB Conc 36 g/dL (31-36); Mean Corpuscular Hemoglobin 36 pg (27-31); Mean Corpuscular Volume 100 fL (80-94); Mean Platelet Volume 8.3 fL (7.4-10.4); Platelet Count 292 10^3/uL (150-450); Red Blood Count 4.22 10^6 /uL (4.18-5.48); Red Cell Distribution Width 13 % (10-15); White Blood Count 10.6 10^3/uL (3.5-10.8)
[2021-10-20] MEDS ORDERED: Bivalirudin 250 MG VIAL ONE ×2 (11:45→12:25)
[2021-10-20] MEDS ORDERED: Eptifibatide IV (Load dose) 2 MG/ML 10 ml VIAL ONE ×2 (11:52→12:00)
[2021-10-20 12:08] LABS: Albumin 4.2 g/dL (3.2-5.2); Albumin/Globulin Ratio 1.8 (1-3); Calcium 9.1 mg/dL (8.6-10.3); Globulin 2.3 g/dL (2-4); Total Bilirubin 0.6 mg/dL (0.2-1.0); Total Protein 6.5 g/dL (6.4-8.9); eGFR CKD-EPI 69.4 (>60)
[2021-10-20] MEDS ORDERED: Phenylephrine 40 mcg/mL 10mL (400mcg) SYRINGE ONE (12:14)
[2021-10-20] MEDS ORDERED: Ondansetron 4 mg VIAL 2 MG/ML 2 ml VIAL ONE ×2 (12:30→13:08)
[2021-10-20] MEDS ORDERED: NS 0.9% 1000 ml BAG 1,000 ML IV SCH (12:45)
[2021-10-20 12:58] LABS: High Sensitivity Troponin 1 Hr 380 pg/mL (<20)
[2021-10-20 13:05] LABS: INR 4.31 (0.86-1.15)
[2021-10-20] MEDS: Ondansetron 4 mg VIAL 2 MG/ML 2 ml VIAL IV PRN (13:11)
[2021-10-20 13:13] LABS: Magnesium 1.9 mg/dL (1.9-2.7)
[2021-10-20] MEDS ORDERED: Bivalirudin 250 MG in NS 0.9% 50 ML 50 ML IV SCH (15:00)
[2021-10-20] MEDS ORDERED: Al Hydrox/Mg Hydrox/Simet LIQ 30 ML UDC PO ONE (16:26)
[2021-10-20] MEDS ORDERED: IPRATROPIUM BR (NF)0.03% NASAL 1 SPRAY BTL BOTH NARES SCH (23:45)
[2021-10-21] MEDS ORDERED: Atropine 0.1 MG/ML 10 ml SYR (1 mg) ONE (00:10)
[2021-10-21] MEDS: Ondansetron 4 mg VIAL 2 MG/ML 2 ml VIAL IV PRN (00:13)
[2021-10-21] MEDS ORDERED: Heparin DRIP 25,000 UNITS BAG 25,000 UNITS/500 ML BAG IV SCH (00:30)
[2021-10-21] MEDS ORDERED: Heparin 5000 UNITS/ML 1 mL VIAL IV SCH (01:00)
[2021-10-21 02:04] LABS: ABS Lymphocytes 0.9 10^3/ul (1.0-4.8); ABS Monocytes 1.1 10^3/ul (0-0.8); Hematocrit 37 % (42-52); Lymphocyte % 5.9 %; Mean Corpuscular HGB Conc 35 g/dL (31-36); Mean Corpuscular Hemoglobin 34 pg (27-31); Mean Corpuscular Volume 98 fL (80-94); Mean Platelet Volume 8.3 fL (7.4-10.4); Platelet Count 276 10^3/uL (150-450); Red Blood Count 3.78 10^6 /uL (4.18-5.48); Red Cell Distribution Width 13 % (10-15); White Blood Count 15.1 10^3/uL (3.5-10.8)
[2021-10-21 05:01] LABS: ABS Basophils 0.1 10^3/ul (0-0.2); ABS Lymphocytes 1.4 10^3/ul (1.0-4.8); ABS Monocytes 1.2 10^3/ul (0-0.8); ABS Neutrophils 13.1 10^3/ul (1.5-7.7); Hematocrit 38 % (42-52); Lymphocyte % 8.8 %; Mean Corpuscular HGB Conc 34 g/dL (31-36); Mean Corpuscular Hemoglobin 34 pg (27-31); Mean Corpuscular Volume 99 fL (80-94); Mean Platelet Volume 8.4 fL (7.4-10.4); Platelet Count 288 10^3/uL (150-450); Red Blood Count 3.84 10^6 /uL (4.18-5.48); Red Cell Distribution Width 13 % (10-15); White Blood Count 15.8 10^3/uL (3.5-10.8)
[2021-10-21 06:13] LABS: Albumin 3.8 g/dL (3.2-5.2)
[2021-10-21 06:19] LABS: Albumin/Globulin Ratio 1.7 (1-3); Globulin 2.2 g/dL (2-4); HDL Cholesterol 46.7 mg/dL
[2021-10-21 06:23] LABS: Calcium 8.4 mg/dL (8.6-10.3); Total Bilirubin 0.7 mg/dL (0.2-1.0); eGFR CKD-EPI 78.9 (>60)
[2021-10-21] MEDS ORDERED: Iohexol 350 (CONTRAST) 500 ML MDV IV ONE (08:42)
[2021-10-21] MEDS ORDERED: Perflutren Lipid Microsphere 3 ML VIAL ONE (09:10)
[2021-10-21 12:31] LABS: INR 1.2 (0.86-1.15)
[2021-10-21] MEDS ORDERED: IPRATROPIUM BR (NF)0.03% NASAL 1 SPRAY BTL BOTH NARES SCH (17:00)
[2021-10-21] MEDS ORDERED: IPRATROPIUM BR (NF)0.03% NASAL 1 SPRAY BTL BOTH NARES PRN (17:19)
[2021-10-22 07:15] LABS: ABS Eosinophils 0.1 10^3/ul (0-0.6); ABS Lymphocytes 2.1 10^3/ul (1.0-4.8); ABS Monocytes 1.3 10^3/ul (0-0.8); ABS Neutrophils 8.2 10^3/ul (1.5-7.7); Eosinophil % 0.6 %; Hematocrit 39 % (42-52); Hemoglobin 13.5 g/dL (14.0-18.0); Lymphocyte % 18.2 %; Mean Corpuscular HGB Conc 35 g/dL (31-36); Mean Corpuscular Hemoglobin 34 pg (27-31); Mean Corpuscular Volume 100 fL (80-94); Mean Platelet Volume 8.5 fL (7.4-10.4); Platelet Count 266 10^3/uL (150-450); Red Blood Count 3.93 10^6 /uL (4.18-5.48); Red Cell Distribution Width 13 % (10-15); White Blood Count 11.7 10^3/uL (3.5-10.8)
[2021-10-22 07:49] LABS: Calcium 8.7 mg/dL (8.6-10.3); Magnesium 1.8 mg/dL (1.9-2.7); Potassium 4.1 mmol/L (3.5-5.0)
[2021-10-22] MEDS ORDERED: Magnesium Sulfate 2 gm BAG 2 GM/50 ML BAG IVPB ONE (08:35)
[2021-10-22 12:04] VITALS: BP 114/64
== END 2021-10-22 22:17 | disposition home or self-care (01) | DRG 246 ==
LOC: ED 11:10 → CHICATH 11:28 → ICU 13:13 → MEDTELE 10-21 16:40
PROVIDERS: ATTEND Internal Medicine